=== PATIENT | female | born 1955 | race Caucasian/White ===

== ENCOUNTER → 2016-06-14 | Day surgery (SDC) | payer BC ==
[~2016-06-14] MED LIST: BUPIVACAINE 0.5% 30 ML VIAL ONE; CEFAZOLIN 1 GM VIAL ONE; FENTANYL 100 MCG/2 ML VIAL IV ONE; FENTANYL 100 MCG/2 ML VIAL IV PRN; HYDROmorphone 1 MG INJECTION IV PRN; LABETALOL 20 MG/4 ML SYRINGE IV PRN; LIDOCAINE 1% 30 ML VIAL (PRESERVATIVE FREE) ONE; LIDOCAINE 100 MG PFS IV ONE; MEPERIDINE 25 MG/ML TUBEX IV PRN; MIDAZOLAM 2 MG/2 ML VIAL IV ONE; ONDANSETRON HCL 4 MG ODT TAB PO PRN; ONDANSETRON HCL 4 MG/2 ML VIAL IV ONE; ONDANSETRON HCL 4 MG/2 ML VIAL IV PRN; PROPOFOL 200 MG/20 ML VIAL IV ONE; hydrALAZINE 20 MG/ML VIAL IV PRN
--- NOTE | 2016-06-14 07:11 | HIM.ANES ---
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 (06/14/16) ENCOUNTER FOR ADJUSTMENT AND MANAGEMENT OF VAD (06/14/16) Consented Procedure: REMOVAL OF PORTACATH - Focused Review of Systems Cardiac History: No: Hx Cardiac Disorders HEENT: Yes: Hx Vision Problem (PRESCRIPTION GLASSES), Other HEENT Problems Hx Other HEENT Surgery: TONSILLECTOMY Hx Other HEENT Problems: RHINNITIS Gastrointestinal: No: Hx Gastrointestinal Disorders Neurological/Musculoskeletal: No: Hx Neurological Disorders Psychological: No Hx Mental/Emotional Disorders Endocrine: Yes: Hx Hyperthyroidism Blood/Autoimmune: No: Hx AIDS, Hx Hepatitis (type) Smoking Status: Never smoker Other Surgical History: TONSILLECTOMY PARTIAL HYSTERECTOMY AGE 28, LEFT LUMPECTOMY 2012 - Focused Physical Exam NPO since: 06/13/152229 Neck: Full Range of Motion Cardiovascular/Chest: Normal (RRR no mumurs or rubs.) Respiratory: Lungs clear. negative: Rhonchi, Wheezing Any problems with anesthesia, including nausea and vomiting?: No Any relatives with a history of Malignant Hyperthermia?: No Beta Miladys given (if appropriate): N/A Does the patient have a history of Motion Sickness-: No Other: Allergies Allergy/AdvReac Type Severity Reaction Status Date / Time codeine [Codeine] Allergy Nausea/Vomi Verified 06/14/16 06:27 ting Home Medications Medication Instructions Recorded Last Taken Type Anastrozole [Arimidex] 1 mg PO DAILY 06/10/16 06/07/16 History Methimazole 5 mg PO DAILY 06/10/16 06/13/16 22:00 History Height and Weight Patient's height 5 ft 7 in Patient's weight 85.729 kg Vital Signs Temperature 97.9 F 06/14/16 06:21 Pulse Rate 67 06/14/16 06:21 Respiratory Rate 18 06/14/16 06:21 Blood Pressure 140/72 06/14/16 06:21 Pulse Oxygen Saturation 99 06/14/16 06:21 - Anesthetic Plan Anesthesia Type: MAC ASA Class: 3 -: I have examined this patient and reviewed the medical record. The patient has been assessed prior to anesthesia. Risks and benefits of anesthesia and anesthetic technique options have been discussed and all questions answered. The patient accepts the risk and desires me to proceed with the planned anesthetic.
--- NOTE | 2016-06-14 07:44 | HIMOPRPT ---
DATE OF PROCEDURE: 06/14/16 PREOPERATIVE DIAGNOSIS: Encounter for management and adjustment of vascular device POSTOPERATIVE DIAGNOSIS: Encounter for management and adjustment of vascular device STAGE: Stage IIIa (T2,N2a,M0) PROCEDURE: Removal of right subclavian Port-A-Cath. SURGEON: Dominguez Pradhan DO. ANESTHESIA: Monitored anesthesia care with local anesthetic ANESTHESIOLOGIST: Dr. Phil Davis DRAINS: None. SPONGE COUNT: Correct COMPLICATIONS: None PATIENT CONDITION: Stable. ESTIMATED BLOOD LOSS: 1 mL. SPECIMEN: Port-A-Cath to pathology. INDICATIONS: This is a 61-year-old female with a history of Port-A-Cath insertion for chemotherapy. The patient has completed chemotherapy, requested Port-A-Cath removal. Risks associated with operation were discussed with the patient in detail include, but not to bleeding, infection, incomplete removal of Port-A-Cath, requiring possible thoracotomy, possible interventional radiology procedure, deep vein thrombosis, resultant pulmonary embolism, perioperative cardiac and respiratory morbidity and mortality. All questions were answered. Informed consent was obtained FINDINGS: Port-A-Cath was removed intact. No evidence of infection or inflammation. PROCEDURE IN DETAIL: SAMUEL MORALES was taken to the operative suite at [facility] and placed in the supine position. Monitored anesthesia care was begun. Right chest was sterilely prepped and draped in the usual fashion. A vertical incision was made over the Port-A-Cath per the patient 's request and as previously agreed upon drawn line per the patient's request in the office and in the same-day surgery preoperative area. Incision was made after infiltration of local anesthetic. Incision was carried down to the subcutaneous tissue, Port-A-Cath was identified. Previously placed Prolene sutures were cut and removed. The Port-A-Cath was removed. Pressure was held for 10 minutes at the catheter insertion site. Hemostasis was perfected with electrocautery. The area was closed in the tunnel. The catheter tunnel itself was closed with 3-0 Vicryl [id number] suture. Additional 3-0 Vicryl was used for closure of subcutaneous tissue. Skin was closed with 4-0 Monocryl subcuticular stitch. Dermabond was applied. Sterile occlusive dressing was applied over this. The patient was taken to recovery, having tolerated the procedure well.
[2016-06-14 07:57] VITALS: TEMP 97
[2016-06-14 08:40] VITALS: PULSE 63
[2016-06-14 15:45] VITALS: BP 131/76
--- NOTE | 2016-06-14 15:45 | SC.ANESPOS ---
Post-Anesthesia Note LOC: Fully Awake Post-Anesthesia Assessment: Awake, Returned to Baseline, Hemodynamically Stable , Pain Control Adequate Phase I & II Recovery Complete: Yes Apparent Anesthesia Complication: No : N PACU Discharge Time: 08:10 - Vital Signs Blood Pressure: 131/76 Pulse: 63 Resp Rate: 16 O2 Sat: 94 Temp: 97 F - Comments Anesthesia Discharge Time Report Time 08:10
== END ==
LOC: SDC 05:33
PROVIDERS: ATTEND Surgery
PROC: 0JPT0XZ Removal of Tunneled Vascular Access Device from Trunk Subcutaneous Tissue and Fascia, Open Approach (ICD-10-PCS; principal; 2016-06-14 07:15)
DX: Z45.2 Encounter for adjustment and management of vascular access device (principal); C50.419 Malignant neoplasm of upper-outer quadrant of unspecified female breast; E05.90 Thyrotoxicosis, unspecified without thyrotoxic crisis or storm; Z79.899 Other long term (current) drug therapy
CPT/HCPCS: 36590; J0690; J2001; J3490; J2250; J2405; J3010